=== PATIENT | female | born 1975 | race African-American/Black ===

== ENCOUNTER 2021-10-13 15:59 | Emergency (ER) | payer OTHER ==
--- OUTSIDE RECORDS SUMMARY | 2021-10-13 16:02 | XMS REPORT | Continuity of Care Document ---
:1975 Author Organization [facility] t Address [address] [place] [address] Care Team Providers Name Role Phone [email or web address] Attending Clinician Unavailable Black, D Attending Clinician Unavailable [email or web address]_D Admitting Clinician Unavailable Black, D Admitting Clinician Unavailable Physician, Primary or Family Admitting Clinician Unavailabl e Payers Payer Name Policy Type Policy Number Effective Date Expiration Date S [facility] [id number] (PPO) Problems This patient has no known problems. Allergies, Adverse Reactions, Alerts Allergy Allergy Status Severity Reaction(s) Onset Inactive Treating Comm ents Source Name Type Date Date Clinician No Known DA Active U [facility] d 00 [facility] Medications This patient has no known medications. Procedures This patient has no known procedures. Encounters Start End Encounter Admission Attending Care Care Encounter Source Date/Time Date/Time Type Type Clinicians Facility Department ID 2021-03-29 2021-03-29 Outpatient [email or web address]_ PRIV PRIV [id number] [facility] 12:33:00 12:33:00 Black_D [id number] Medica l 2021-03-15 2021-03-15 Outpatient Radha Pierre HCAPM LORENZO [id number] [facility] 12:00:00 12:00:00 [id number] [facility] 2020-03-07 2020-03-07 Outpatient Radha Pierre HCAPM LORENZO [id number] [facility] 12:00:00 12:00:00 [id number] [facility] Results This patient has no known results.
[2021-10-13] MEDS ORDERED: IBUPROFEN 400 MG TAB ONE (17:34)
--- NOTE | 2021-10-13 17:38 | EDPHYS ---
Physician Documentation [facility] Name: Minnie Gee Age: 46 yrs Sex: Female : 1975 Arrival Date: 10/13/2021 Time: 16:01 Bed 11 Private MD: AIDEE Physician Rayshawn Sanchez HPI: 10/13 17:25 This 46 yrs old Black Female presents to ER via Ambulatory with complaints of Finger gayla Numbness. 17:25 The patient or guardian complains of decreased range of motion, pain. The complaints gayla affect the dorsal aspect of right forearm, right wrist, right hand and palmar aspect of right forearm. Context: resulted from lifting or pulling, a heavy object, repetitive motion CLIMBING. Onset: The symptoms/episode began/occurred 3 day(s) ago. Treatment prior to arrival includes: no previous treatment. The patient or guardian reports decreased range of motion, pain. The complaints affect the right hand diffusely. 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 - Social history:: Smoking status: Patient denies any tobacco usage or history of. - Family history:: not pertinent. ROS: 17:25 Constitutional: Negative for fever, chills, and weight loss, Eyes: Negative for injury, gayla pain, redness, and discharge, ENT: Negative for injury, pain, and discharge, Neck: Negative for injury, pain, and swelling, Cardiovascular: Negative for chest pain, palpitations, and edema, Respiratory: Negative for shortness of breath, cough, wheezing, and pleuritic chest pain, Abdomen/GI: Negative for abdominal pain, nausea, vomiting, diarrhea, and constipation, Back: Negative for injury and pain, : Negative for injury, bleeding, discharge, and swelling, Skin: Negative for injury, rash, and discoloration, Neuro: Negative for headache, weakness, numbness, tingling, and seizure, Psych: Negative for depression, anxiety, suicide ideation, homicidal ideation, and hallucinations, Allergy/Immunology: Negative for hives, rash, and allergies, Endocrine: Negative for neck swelling, polydipsia, polyuria, polyphagia, and marked weight changes, Hematologic/Lymphatic: Negative for swollen nodes, abnormal bleeding, and unusual bruising. 17:25 MS/extremity: Positive for pain, tenderness, of the dorsal aspect of right forearm, right wrist, right hand and palmar aspect of right forearm. Exam: 17:25 Constitutional: This is a well developed, well nourished patient who is awake, alert, gayla and in no acute distress. Head/Face: Normocephalic, atraumatic. Eyes: Pupils equal round and reactive to light, extra-ocular motions intact. Lids and lashes normal. Conjunctiva and sclera are non-icteric and not injected. Cornea within normal limits. Periorbital areas with no swelling, redness, or edema. ENT: Nares patent. No nasal discharge, no septal abnormalities noted. Tympanic membranes are normal and external auditory canals are clear. Oropharynx with no redness, swelling, or masses, exudates, or evidence of obstruction, uvula midline. Mucous membranes moist. Neck: Trachea midline, no thyromegaly or masses palpated, and no cervical lymphadenopathy. Supple, full range of motion without nuchal rigidity, or vertebral point tenderness. No Meningismus. Chest/axilla: Normal chest wall appearance and motion. Nontender with no deformity. No lesions are appreciated. Cardiovascular: Regular rate and rhythm with a normal S1 and S2. No gallops, murmurs, or rubs. Normal PMI, no JVD. No pulse deficits. Respiratory: Lungs have equal breath sounds bilaterally, clear to auscultation and percussion. No rales, rhonchi or wheezes noted. No increased work of breathing, no retractions or nasal flaring. Abdomen/GI: Soft, non-tender, with normal bowel sounds. No distension or tympany. No guarding or rebound. No evidence of tenderness throughout. Back: No spinal tenderness. No costovertebral tenderness. Full range of motion. Skin: Warm, dry with normal turgor. Normal color with no rashes, no lesions, and no evidence of cellulitis. Neuro: Awake and alert, GCS 15, oriented to person, place, time, and situation. Cranial nerves II-XII grossly intact. Motor strength 5/5 in all extremities. Sensory grossly intact. Cerebellar exam normal. Normal gait. Psych: Awake, alert, with orientation to person, place and time. Behavior, mood, and affect are within normal limits. 17:25 Musculoskeletal/extremity: Extremities: noted in the right arm: pain, tenderness, DVT Exam: no swelling, negative Homans' sign noted on exam, no appreciated bluish discoloration, no erythema, no increased warmth, pain, tenderness. Vital Signs: 16:18 BP 141 / 83; Pulse 75; Resp 16; Temp 97.7; Pulse Ox 100% ; Weight 99.34 kg; Height 5 vg1 ft. 4 in. (162.56 cm); Pain 0/10; 16:18 Body Mass Index 37.59 (99.34 kg, 162.56 cm) vg1 MDM: 17:04 Patient medically screened. gayla 17:35 Differential diagnosis: contusion, tendonitis. Data reviewed: vital signs, nurses gayla notes. 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 Counseling: I had a detailed discussion with the patient and/or guardian regarding: the historical points, exam findings, and any diagnostic results supporting the discharge/admit diagnosis, radiology results, the need for outpatient follow up, for definitive care, a family practitioner. Administered Medications: 17:33 Drug: Motrin (ibuprofen) 800 mg Route: PO; ll1 17:56 Follow up: Response: No adverse reaction ll1 Disposition Summary: 10/13/21 17:38 Discharge Ordered Location: Home gayla Problem: new gayla Symptoms: have improved gayla Condition: Stable gayla Diagnosis - Strain of other flexor muscle, fascia and tendon at forearm level, right arm, gayla initial encounter - Pain in right hand gayla Followup: gayla - With: Private Physician - When: 2 - 3 days - Reason: Recheck today's complaints, Continuance of care, Re-evaluation by your physician Discharge Instructions: - Discharge Summary Sheet gayla - Muscle Strain gayla - Musculoskeletal Pain gayla - How to Use Cold Therapy, [id number]-[id number] gayla - Muscle Strain, Agyx-zf-[id number] gayla - Hand Pain gayla Forms: - Medication Reconciliation Form gayla - Thank You Letter gayla - Antibiotic Education gayla - Prescription Opioid Use gayla - Work release form vg1 Prescriptions: - Diclofenac Sodium 75 mg Oral tablet,delayed release (/EC) - take 1 tablet by ORAL route 2 times per day; 20 tablet; Refills: 0, Product gayla Selection Permitted - Medrol (Huy) 4 mg Oral Tablets, Dose Pack - take 1 tablet by ORAL route as directed - follow package instructions; 1 gayla packet; Refills: 0, Product Selection Permitted Signatures: Rayshawn Sanchez MD MD cha Garcia, Victoria RN RN vg1 Sunil Hanna RN RN ll1
--- NOTE | 2021-10-13 17:38 | ER ---
Nurse's Notes [facility] Name: Minnie Gee Age: 46 yrs Sex: Female : 1975 Arrival Date: 10/13/2021 Time: 16:01 Bed 11 Private MD: Diagnosis: Strain of other flexor muscle, fascia and tendon at forearm level, right arm, initial encounter;Pain in right hand Presentation: 10/13 16:18 Chief complaint: Patient states: Yesterday Right middle finger is numb and radiates up vg1 to Right forearm; also states that Right biceps 'keeps twitching'. Denies any injuries. Coronavirus screen: Vaccine status: Patient reports receiving the 2nd dose of the covid vaccine. Client denies travel out of the [place] in the last 14 days. Ebola Screen: Patient negative for fever greater than or equal to 101.5 degrees Fahrenheit, and additional compatible Ebola Virus Disease symptoms. Initial Sepsis Screen: Does the patient meet any 2 criteria? No. Patient's initial sepsis screen is negative. Does the patient have a suspected source of infection? No. Patient's initial sepsis screen is negative. Risk Assessment: Do you want to hurt yourself or someone else? Patient reports no desire to harm self or others. Onset of symptoms was October 12, 2021. 16:18 Method Of Arrival: Ambulatory vg1 16:18 Acuity: ИВАН 4 vg1 Triage Assessment: 16:18 General: Appears comfortable, Behavior is calm, cooperative. Pain: Denies pain. 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 Gait is steady, Speech is normal, Facial symmetry appears normal. 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 - Social history:: Smoking status: Patient denies any tobacco usage or history of. - Family history:: not pertinent. Screenin:03 Abuse screen: Denies threats or abuse. Nutritional screening: No deficits noted. ll1 Tuberculosis screening: No symptoms or risk factors identified. Fall Risk Total Conroy Fall Scale indicates No Risk (0-24 pts). Assessment: 17:02 Reassessment: Patient appears in no apparent distress at this time. No changes from ll1 previously documented assessment. Patient and/or family updated on plan of care and expected duration. Pain level reassessed. Patient is alert, oriented x 3, equal unlabored respirations, skin warm/dry/pink. 17:55 Reassessment: Patient appears in no apparent distress at this time. No changes from ll1 previously documented assessment. Patient and/or family updated on plan of care and expected duration. Pain level reassessed. Patient is alert, oriented x 3, equal unlabored respirations, skin warm/dry/pink. Vital Signs: 16:18 BP 141 / 83; Pulse 75; Resp 16; Temp 97.7; Pulse Ox 100% ; Weight 99.34 kg; Height 5 vg1 ft. 4 in. (162.56 cm); Pain 0/10; 16:18 Body Mass Index 37.59 (99.34 kg, 162.56 cm) vg1 ED Course: 16:01 Patient arrived in ED. rg4 16:18 Arm band placed on. 1 16:21 Triage completed. 1 16:25 Lino Ledezma PA is PHCP. [facility] 16:25 Rayshawn Sanchez MD is Attending Physician. [facility] 17:01 Patient placed in an exam room, on a stretcher. vg1 17:02 Sunil Hanna, COLT is Primary Nurse. ll1 17:03 Patient has correct armband on for positive identification. Bed in low position. Call ll1 light in reach. Side rails up X 1. Cardiac monitoring not applicable on this patient. 17:55 No provider procedures requiring assistance completed. Patient did not have IV access ll1 during this emergency room visit. Administered Medications: 17:33 Drug: Motrin (ibuprofen) 800 mg Route: PO; ll1 17:56 Follow up: Response: No adverse reaction ll1 Outcome: 17:38 Discharge ordered by . gayla 17:55 Discharged to home ambulatory. ll1 17:55 Condition: stable 17:55 Discharge instructions given to patient, Instructed on discharge instructions, follow up and referral plans. medication usage, Demonstrated understanding of instructions, follow-up care, medications, Prescriptions given X 2. 17:56 Patient left the ED. ll1 Signatures: Rayshawn Sanchez MD MD cha Mickail, Joel, PA PA jmm Garcia, Rubi rg4 Laura Ansari, RN RN vg1 Sunil Hanna RN RN ll1 Corrections: (The following items were deleted from the chart) 16:22 16:18 Pulse 75bpm; Resp 16bpm; Pulse Ox 100%; Temp 97.7F; 99.34 kg; Height 5 ft. 4 in.; vg1 BMI: 37.5; Pain 0/10; vg1 16:25 16:18 Chief complaint: Patient states: Yesterday Right middle finger is numb and vg1 radiates up to Right forearm; also states that Right biceps 'keeps twitching'. vg1
[2021-10-13 18:01] VITALS: BP 141/83; TEMP 97.7; O2SAT 100
== END 2021-10-13 17:56 | disposition home or self-care (01) ==
LOC: ER 15:59
DX: S56.211A Strain of other flexor muscle, fascia and tendon at forearm level, right arm, initial encounter (principal); X50.0XXA Overexertion from strenuous movement or load, initial encounter
CPT/HCPCS: 99283